=== PATIENT | male | born 1990 | race Hispanic/Latino ===

== ENCOUNTER 2024-11-29 07:30 | Emergency (ER) | payer SELFPAY ==
[~2024-11-29] VITALS: Ht 172.7 cm; Wt 129.3 kg
[2024-11-29] MEDS ORDERED: KETOROLAC TROMETHAMINE 30 MG/ML VIAL ONE (08:03)
[2024-11-29] MEDS ORDERED: ASPIRIN 81 MG CHEW TAB ONE (08:03)
[2024-11-29] MEDS: SODIUM CHLORIDE 0.9% 1000ML 1,000 ML IV STA (08:09)
[2024-11-29] MEDS: KETOROLAC TROMETHAMINE 30 MG/ML VIAL IV STA (08:09)
[2024-11-29] MEDS: ASPIRIN 81 MG CHEW TAB PO ONE (08:10)
[2024-11-29 08:41] VITALS: PULSE 60; RESP 16; TEMP 98.1; O2SAT 100
== END 2024-11-29 08:53 | disposition home or self-care (01) ==
LOC: FSED 07:43
DX: R07.9 Chest pain, unspecified (principal)
CPT/HCPCS: 71046; 93005; 99284; J1885; J7030